=== PATIENT | male | born 1970 | race African-American/Black ===

== ENCOUNTER 2021-07-09 10:08 | Emergency (ER) | payer MEDICAID, SELFPAY ==
[2021-07-09 10:20] VITALS: BP 163/97; PULSE 110; RESP 16; TEMP 36.8; O2SAT 99
--- NOTE | 2021-07-09 10:25 | ED.LOWEXIN ---
HPI - Extremity Injury (Lower) General Chief Complaint: Extremity Injury, Lower Stated Complaint: left knee pain Time Seen by Provider: 07/09/21 10:25 Source: patient Mode of arrival: ambulatory Limitations: no limitations History of Present Illness HPI Narrative: Mr. Sánchez is a 50-year-old male patient presenting to the clinic today with complaints of left knee pain x2 weeks. Has had a history of reconstructive surgery/arthroscopic surgery to his knee when he was in college after playing football. States that the pain is to the left medial anterior knee and is a sharp stabbing in nature. Feels that it is worse when he is weightbearing and flexing and extending the left knee. Rates pain 10 out of 10 currently. No obvious injury that he knows of within the last 2 weeks. Denies the feeling as though his knee is giving out while he is walking Related Data Home Medications Medication Instructions Recorded Confirmed baclofen 10 mg DIRECTED 07/09/21 07/09/21 ibuprofen 800 mg DIRECTED 07/09/21 07/09/21 lidocaine 1 patch DIRECTED 07/09/21 07/09/21 lisinopril 20 mg DIRECTED 07/09/21 07/09/21 meloxicam 7.5 mg DIRECTED 07/09/21 07/09/21 tramadol 50 mg DIRECTED 07/09/21 07/09/21 Allergies Allergy/AdvReac Type Severity Reaction Status Date / Time No Known Allergies Allergy Unverified 09/27/14 14:17 Review of Systems Review of Systems: Pertinent positives per HPI. Patient denies any fever, chills, rash, headache, visual changes, dizziness, cough, runny nose, sore throat, shortness of breath, chest pain, palpitations, nausea, vomiting, diarrhea, constipation, abdominal pain, or any urinary issues. PMFSH Comments At the time of my signature, I reviewed and agree with the nursing past medical, surgical, social, and family history. There is no relevant family history pertinent to the patient complaint. Exam Narrative: General: Well-developed, well nourished, in no apparent distress Head: Normocephalic, atraumatic. Cardio: Regular rate and rhythm, s1 and s2 normal, no murmur appreciated. Resp: Clear to auscultation bilaterally, no rhonchi, rales, wheezing or rubs. Musculoskeletal: No deformity, well-healed old scarring to left knee from previous procedures, tender to palpation over the medial anterior knee, range of motion of the left knee is limited due to pain, pain is worse with flexion and extension, crepitus felt with flexion and extension of the knee, muscle strength strong and equal, peripheral pulse strong, no edema, no cyanosis, normal gait and station Course Course Emergency Course: Portions of this record may have been created with voice recognition software. Level of Care: Express Care Visit Vital Signs Vital signs: Vital Signs Temperature 36.8 C 07/09/21 10:20 Pulse Rate 110 H 07/09/21 10:20 Respiratory Rate 16 07/09/21 10:20 Blood Pressure 163/97 H 07/09/21 10:20 Pulse Oximetry 99 07/09/21 10:20 Temperature 36.8 C 07/09/21 10:20 Pulse Rate 110 H 07/09/21 10:20 Respiratory Rate 16 07/09/21 10:20 Blood Pressure 163/97 H 07/09/21 10:20 Pulse Oximetry 99 07/09/21 10:20 Vital signs reviewed MDM - Extremity Injury (Lower) MDM Narrative Medical decision making narrative: At the time of visit patient is resting in the wheelchair. Is having pain with flexion and extension of the left knee as well as weightbearing. No known injury. 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 I feel that he either has a tendinitis to the left anterior knee or arthritis. Denies the feeling that his knee is going to give out, I will give him a prescription for some prednisone and he had received a Toradol 60 mg IM injection in the clinic today for pain. He declines a work note and is wanting to go back to work today. He is to follow-up with his PCP if symptoms do not improve for further imaging/evaluation. Differential Diagnosis Differential diagnosis: Likely acute inte
[2021-07-09] MEDS: KETOROLAC (*BKC) 60 MG/2 ML VIAL IM (10:34)
== END 2021-07-09 11:02 | disposition home or self-care (01) ==
PROVIDERS: Emergency Provider Nurse Practitioner Family
DX: M25.562 Pain in left knee (principal); I10 Essential (primary) hypertension
CPT/HCPCS: 96372; 99213; G0463; J1885

== ENCOUNTER 2021-08-16 08:34 | Emergency (ER) | payer OTHER, SELFPAY ==
[2021-08-16 08:48] VITALS: BP 206/119; PULSE 103; RESP 20; TEMP 36.7; O2SAT 98
--- NOTE | 2021-08-16 08:58 | ED.LOWEXIN ---
HPI - Extremity Injury (Lower) General Chief Complaint: Extremity Injury, Lower Stated Complaint: Left Knee Pain Time Seen by Provider: 08/16/21 08:58 Source: patient, RN notes reviewed and old records reviewed Mode of arrival: ambulatory Limitations: no limitations History of Present Illness HPI Narrative: 50-year-old male presents to the [facility] with complaints of left knee pain. Was seen approximately 1.5 months ago on 09 July 2021 for the same. At that time he received a shot of Toradol. Patient reports that he followed up with his primary care provider but is having pain. Was referred to sports medicine but has not followed up. MD complaint: other (left knee pain, no recent injury) Related Data Home Medications Medication Instructions Recorded Confirmed lisinopril 20 mg tablet 20 mg DIRECTED 07/09/21 08/16/21 Allergies Allergy/AdvReac Type Severity Reaction Status Date / Time No Known Allergies Allergy Verified 08/16/21 09:05 Review of Systems Review of Systems: All systems reviewed & are unremarkable except as noted in HPI and below Constitutional: Constitutional: Reports no additional constitutional complaints, Denies chills and Denies fever(s) Eyes: Eyes: Reports no additional eye complaints ENT: Reports system reviewed and no additional complaints, except as documented Cardiovascular: Cardiovascular: Reports no additional cardiovascular complaints Respiratory: Respiratory: Reports no additional respiratory complaints Gastrointestinal: Gastrointestinal: Reports no additional gastrointestinal complaints Musculoskeletal: Musculoskeletal: Reports as per HPI and Reports arthralgias (left knee) Integumentary/Breasts: Skin/Breast: Reports system reviewed and no additional complaints, except as docu Neurologic: Reports system reviewed and no additional complaints, except as documented Psychiatric: Psychiatric: Reports no additional psychiatric complaints Allergic/Immunologic: Allergic/Immunologic: Reports no additional allergic/immunologic complaints PMFSH Past Medical History Medical History (Updated 08/16/21 @ 09:33 by Andree Kaufman APRN) History of high blood pressure Social History Social History (Updated 08/16/21 @ 09:33 by Andree Kaufman APRN) Gender identity (if verbalized by the patient): Male Comments At the time of my signature, I reviewed and agree with the nursing past medical, surgical, social, and family history. There is no relevant family history pertinent to the patient complaint. Exam Const: General: healthy appearing, no acute distress and alert Nutritional Appearance: well nourished Orientation/consciousness: patient oriented x3 Limitations: no limitations HENMT: Head: normal to inspection Ears: external ears normal Eyes: General: appearance normal, both eyes and all related structures Pupils: Equal, round and reactive pupils present Neck: Neck: normal visual inspection, no lymphadenopathy and no meningeal signs Chest: Chest palpation & inspection: normal inspection of the chest Resp: Effort & Inspection: normal respiratory effort and no use of accessory muscles Auscultation: clear to auscultation bilaterally, no crackles, no rales, no rhonchi and no wheezes Cardio: Rate: regular rate Rhythm: regular rhythm Back/Spine/Pelvis: Cervical Spine: normal cervical lordosis Thoracic/Lumbar Spine: thoracic and lumbar spine normal to inspection Skin: General skin exam: normal color Rashes: no rashes Wounds: no wounds Neuro: General: patient oriented x3, moves all extremities, no meningeal signs and no focal motor deficits Cranial nerves: Yes Equal, round and reactive pupils present Speech: normal speech Gait exam (Neuro): Normal gait present Extrem: General: full ROM, capillary refill normal and normal exam except as noted Left lower extremity: full ROM, normal capillary refill and knee Details: tenderness (Generalized), normal ROM and knee ligament e
[2021-08-16 09:10] VITALS: BP 180/116
== END 2021-08-16 09:15 | disposition home or self-care (01) ==
PROVIDERS: Emergency Provider Nurse Practitioner; PCP Family Medicine
DX: M25.562 Pain in left knee (principal); I10 Essential (primary) hypertension
CPT/HCPCS: 99213; G0463